=== PATIENT | male | born 1985 | race African-American/Black ===

== ENCOUNTER 2016-02-18 01:11 | Emergency (ER) | payer BC ==
[2016-02-18] MEDS ORDERED: DICYCLOMINE 20MG/2ML VIAL IM ONE (02:34)
== END 2016-02-18 03:19 | disposition home or self-care (01) ==
LOC: ER 01:11
DX: R10.33 Periumbilical pain (principal)
CPT/HCPCS: 36415; 80053; 81003; 83690; 85025; 96372

== ENCOUNTER 2016-02-22 02:41 | Emergency (ER) | payer BC ==
[2016-02-22] MEDS ORDERED: SODIUM CHLORIDE 0.9% 1,000 ML ONE (03:23)
[2016-02-22] MEDS ORDERED: KETOROLAC 30 MG/ML VIAL ONE (03:23)
[2016-02-22] MEDS ORDERED: ONDANSETRON 4 MG VIAL ONE (03:23)
== END 2016-02-22 04:38 | disposition home or self-care (01) ==
LOC: ER 02:41
CPT/HCPCS: 36415; 74176; 80053; 81003; 83690; 85025; 96361; 96374; 96375